=== PATIENT | male | born 1990 | race Caucasian/White ===

== ENCOUNTER 2018-08-27 22:30 | Emergency (ER) | payer SELFPAY ==
[~2018-08-27] VITALS: Ht 170.2 cm; Wt 75.0 kg
[2018-08-27 22:41] VITALS: Ht 170.2 cm; Wt 75.0 kg
[2018-08-27] MEDS ORDERED: NORCO 10-325 TA1 TAB PO (23:26)
[2018-08-27] MEDS ORDERED: ROBAXIN500 MG PO (23:26)
[2018-08-27 23:42] VITALS: BP 138/78
== END 2018-08-27 23:43 | disposition home or self-care (01) ==
LOC: D.ER 22:30
DX: S20.312A Abrasion of left front wall of thorax, initial encounter (principal); V86.59XA Driver of other special all-terrain or other off-road motor vehicle injured in nontraffic accident, initial encounter; Y93.89 Activity, other specified; Y92.89 Other specified places as the place of occurrence of the external cause; S20.212A Contusion of left front wall of thorax, initial encounter; F17.200 Nicotine dependence, unspecified, uncomplicated